=== PATIENT | female | born 1950 | race Hispanic/Latino ===

== ENCOUNTER → 2019-06-26 | Outpatient (CLI) | payer OTHER, MEDICARE ==
[~2019-06-26] VITALS: Ht 157.5 cm; Wt 114.8 kg
[~2019-06-26] MED LIST: REGADENOSON 0.4 MG/5 ML PF SYG IVP SCH
== END | disposition home or self-care (01) ==
LOC: SHCH 08:32
PROVIDERS: ATTEND Internal Medicine Cardiovascular Disease
DX: R06.02 Shortness of breath (principal)
CPT/HCPCS: 78452; 93017; 96374; A9500 ×2; J2785

== ENCOUNTER → 2021-02-11 | Outpatient (CLI) | payer OTHER, MEDICARE ==
[~2021-02-11] MED LIST changes: +ALBUTEROL SULFATE 0.083% 2.5 MG/3 ML INH IH ONE; -REGADENOSON 0.4 MG/5 ML PF SYG IVP SCH
== END | disposition home or self-care (01) ==
LOC: RESP 12:41
PROVIDERS: ATTEND Internal Medicine Cardiovascular Disease
DX: R06.02 Shortness of breath (principal); R91.8 Other nonspecific abnormal finding of lung field; Z78.9 Other specified health status
CPT/HCPCS: 71250; 94060; 94727; 94729

== ENCOUNTER → 2022-11-02 | Outpatient (CLI) | payer OTHER, MEDICARE | END | disposition home or self-care (01) | LOC: SHCH 09:04 | PROVIDERS: ATTEND Internal Medicine Cardiovascular Disease | DX: I87.2 Venous insufficiency (chronic) (peripheral) (principal) | CPT/HCPCS: 93970 ==

== ENCOUNTER → 2022-12-06 | Outpatient (CLI) | payer OTHER, MEDICARE | END | disposition home or self-care (01) | LOC: SHCH 15:04 | PROVIDERS: ATTEND Internal Medicine Cardiovascular Disease | DX: I87.2 Venous insufficiency (chronic) (peripheral) (principal); Z98.890 Other specified postprocedural states | CPT/HCPCS: 93971 ==

== ENCOUNTER → 2022-12-20 | Outpatient (CLI) | payer OTHER, MEDICARE | END | disposition home or self-care (01) | LOC: SHCH 10:08 | PROVIDERS: ATTEND Internal Medicine Cardiovascular Disease | DX: I87.2 Venous insufficiency (chronic) (peripheral) (principal); I82.811 Embolism and thrombosis of superficial veins of right lower extremity; Z98.890 Other specified postprocedural states | CPT/HCPCS: 93971 ==

== ENCOUNTER → 2023-02-18 | Outpatient (CLI) | payer OTHER, MEDICARE ==
[2023-02-18 15:28] LABS: BASOPHILS % (AUTO) 0.6 % (0.0-5.0); EOSINOPHILS % (AUTO) 2.5 % (0.0-8.0); HEMATOCRIT 41.4 % (36-48); LYMPHOCYTES % (AUTO) 33.3 % (21.0-51.0); MEAN CORPUSCULAR HEMOGLOBIN 26.9 pg (27.0-33.0); MEAN CORPUSCULAR HGB CONC 31.4 g/dL (32.0-36.0); MEAN CORPUSCULAR VOLUME 85.7 fL (79-99); MONOCYTES % (AUTO) 7.8 % (3.0-13.0); NEUTROPHILS % (AUTO) 55.5 % (40.0-77.0); PLATELET COUNT (AUTO) 249 K/uL (130-400); RED BLOOD CELL COUNT(AUTO) 4.83 MIL/uL (4.00-5.50); RED CELL DISTRIBUTION WIDTH 13.5 % (11.0-15.5); WHITE BLOOD COUNT (AUTO) 8.9 K/uL (4.8-10.8)
[2023-02-18 15:46] LABS: CREATININE 0.8 mg/dL (0.5-1.5); POTASSIUM 3.7 mmol/L (3.5-5.1)
[2023-02-18 16:06] LABS: INR 0.98 (0.85-1.15); PROTHROMBIN TIME 10.7 SEC (9.6-11.6)
[2023-02-18 16:07] LABS: PARTIAL THROMBOPLASTIN TIME 27.3 SEC (26.3-35.5)
== END | disposition home or self-care (01) ==
LOC: LAB 13:20
PROVIDERS: ATTEND Internal Medicine Cardiovascular Disease
DX: I87.1 Compression of vein (principal); I87.2 Venous insufficiency (chronic) (peripheral); M79.605 Pain in left leg; M25.572 Pain in left ankle and joints of left foot; M79.89 Other specified soft tissue disorders; I10 Essential (primary) hypertension; E03.9 Hypothyroidism, unspecified; E11.59 Type 2 diabetes mellitus with other circulatory complications; Z68.42 Body mass index [BMI] 45.0-49.9, adult; Z79.84 Long term (current) use of oral hypoglycemic drugs; Z79.899 Other long term (current) drug therapy
CPT/HCPCS: 36415; 80048; 85025; 85610; 85730

== ENCOUNTER → 2024-01-10 | Outpatient (CLI) | payer OTHER, MEDICARE ==
[2024-01-10 16:18] LABS: BASOPHILS # (AUTO) 0.03 K/uL (0.00-0.20); BASOPHILS % (AUTO) 0.4 % (0.0-5.0); EOSINOPHILS # (AUTO) 0.33 K/uL (0.00-0.70); HEMATOCRIT 37.9 % (36-48); IMMATURE GRANULOCYTE ABSOLUTE 0.03 K/uL (0-1); LYMPHOCYTES # (AUTO) 3.1 K/uL (1.0-4.8); LYMPHOCYTES % (AUTO) 37.8 % (21.0-51.0); MEAN CORPUSCULAR HEMOGLOBIN 26.9 pg (27.0-33.0); MEAN CORPUSCULAR HGB CONC 31.1 g/dL (32.0-36.0); MEAN CORPUSCULAR VOLUME 86.3 fL (79-99); MONOCYTES # (AUTO) 0.7 K/uL (0.1-1.0); MONOCYTES % (AUTO) 8.1 % (3.0-13.0); NEUTROPHILS # (AUTO) 4.1 K/uL (1.8-7.7); NEUTROPHILS % (AUTO) 49.3 % (40.0-77.0); PLATELET COUNT (AUTO) 225 K/uL (130-400); RED BLOOD CELL COUNT(AUTO) 4.39 MIL/uL (4.00-5.50); RED CELL DISTRIBUTION WIDTH 14.2 % (11.0-15.5); WHITE BLOOD COUNT (AUTO) 8.3 K/uL (4.8-10.8)
[2024-01-10 16:45] LABS: % IRON SATURATION 12.5 % (22-44)
== END | disposition home or self-care (01) ==
LOC: LAB 15:43
PROVIDERS: ATTEND Internal Medicine Cardiovascular Disease
DX: K92.2 Gastrointestinal hemorrhage, unspecified (principal)
CPT/HCPCS: 36415; 82728; 83540; 83550; 85025

== ENCOUNTER → 2024-11-13 | Outpatient (CLI) | payer OTHER, MEDICARE ==
[~2024-11-13] MED LIST changes: -ALBUTEROL SULFATE 0.083% 2.5 MG/3 ML INH IH ONE; +AMLO-257 PO; +ASPI-1443 PO; +BIMA12.5OS OP; +CHOL500045 PO; +CYAN100099 PO; +GABA300C PO; +HYDR12.54 PO; +INSU100I35 SQ; +LEVO50TA11 PO; +LINE600T11 PO; +METF-444 PO; +METO-391 PO; +POTA-183 PO; +PRED10TA3 PO; +SIMV-43 PO; +TELM80TA10 PO
--- NOTE | 2024-11-16 08:14 | HMCSR ---
APPROVED REPORT Bilateral Lower Extremity Venous Study for DVT., Venous Competence. Indications i87.2 Vein Imaging CFV (R): Normal flow, augmentation and compression. No evidence of DVT. 6.9mm 311ms of reflux. SFJ (R): Normal flow, augmentation and compression. No evidence of DVT. FEM (R): Normal flow, augmentation and compression. No evidence of DVT. POP (R): Normal flow, augmentation and compression. No evidence of DVT. DFV (R): Normal flow, augmentation and compression. No evidence of DVT. PTV (R): Normal flow, augmentation and compression. No evidence of DVT. Peroneals (R): Normal flow, augmentation and compression. No evidence of DVT. CFV (L): Normal flow, augmentation and compression. No evidence of DVT. 9.8mm 1517ms of reflux. SFJ (L): Normal flow, augmentation and compression. No evidence of DVT. FEM (L): Normal flow, augmentation and compression. No evidence of DVT. POP (L): Normal flow, augmentation and compression. No evidence of DVT. DFV (L): Normal flow, augmentation and compression. No evidence of DVT. PTV (L): Normal flow, augmentation and compression. No evidence of DVT. Peroneals (L): Normal flow, augmentation and compression. No evidence of DVT. Technologist Impression Deep Veins of bilateral lower extremities appear patent and compressible without thrombus. 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
--- NOTE | 2024-11-16 08:15 | HMCSR ---
APPROVED REPORT Laterality: Bilateral Indications i87.2 VELOCITY AND DOPPLER WAVEFORM ANALYSIS MEDICAL ADMINISTRATOR (R) 142.2cm/sec, Triphasic, MEDICAL ADMINISTRATOR (L) 184.3cm/sec, Triphasic, Prof Fem Art. (R) 75.0cm/sec, Biphasic, Prof Fem Art. (L) 75.0cm/sec, Biphasic, Fem Art Prox. (R) 160.6cm/sec, Triphasic, Fem Art Prox. (L) 171.3cm/sec, Triphasic, Fem Art Mid. (R) 125.0cm/sec, Triphasic, Fem Art Mid. (L) 176.2cm/sec, Triphasic, Fem Art Dist (R) 115.8cm/sec, Triphasic, Fem Art Dist. (L) 150.1cm/sec, Triphasic, Pop Art(AK) (R) 98.4cm/sec, Biphasic, Pop Art (AK) (L) 113.5cm/sec, Biphasic, Pop Art (Fossa)(R) 108.0cm/sec, Biphasic, Pop Art (Fossa) (L) 112.0cm/sec, Biphasic, Pop Art(BK) (R) 127.3cm/sec, Biphasic, Pop Art (BK) (L) 116.9cm/sec, Biphasic, TOOL SETTER APPRENTICE Prox. (R) 174.6cm/sec, Monophasic, TOOL SETTER APPRENTICE Prox. (L) 164.3cm/sec, Monophasic, TOOL SETTER APPRENTICE Mid. (R) 117.0cm/sec, Monophasic, TOOL SETTER APPRENTICE Mid. (L) 147.0cm/sec, Monophasic, TOOL SETTER APPRENTICE Dist. (R) 129.7cm/sec, Monophasic, TOOL SETTER APPRENTICE Dist. (L) 145.4cm/sec, Monophasic, Per Art Prox. (R) cm/sec, Not visualizedPer Art Prox. (L) cm/sec, Not visualized Per Art Mid. (R) cm/sec, Not visualizedPer Art Mid. (L) cm/sec, Not visualized Per Art Dist. (R) cm/sec, Not visualizedPer Art Dist. (L) cm/sec, Not visualized TERRELL Prox. (R) 99.5cm/sec, Monophasic, TERRELL Prox. (L) 84.2cm/sec, Monophasic, TERRELL Mid. (R) 96.0cm/sec, Monophasic TERRELL Mid. (L) 96.6cm/sec, Monophasic, TERRELL Dist. (R) 156.6cm/sec, Monophasic, TERRELL Dist. (L) 114.6cm/sec, Monophasic, Technologist Impression Infra popliteal disease seen Bilatareral Peroneal arteries not seen. Conclusion Monophasic waveforms noted in bilateral infrapopliteal vessels with possible occlusion of bilateral p eroneal arteries Critical infrapopliteal peripheral arterial disease Clinical correlation recommended Conclusion Monophasic waveforms noted in bilateral infrapopliteal vessels with possible occlusion of bilateral p eroneal arteries Critical infrapopliteal peripheral arterial disease Clinical correlation recommended
== END | disposition home or self-care (01) ==
LOC: SHCH 08:59
PROVIDERS: ATTEND Internal Medicine Cardiovascular Disease
DX: I87.2 Venous insufficiency (chronic) (peripheral) (principal); I80.203 Phlebitis and thrombophlebitis of unspecified deep vessels of lower extremities, bilateral; I87.1 Compression of vein
CPT/HCPCS: 93925; 93970

== ENCOUNTER → 2024-11-15 | Outpatient (CLI) | payer OTHER, MEDICARE ==
[2024-11-15 16:14] LABS: BASOPHILS # (AUTO) 0.04 K/uL (0.00-0.20); BASOPHILS % (AUTO) 0.5 % (0.0-5.0); EOSINOPHILS # (AUTO) 0.42 K/uL (0.00-0.70); EOSINOPHILS % (AUTO) 5.3 % (0.0-8.0); HEMATOCRIT 38.4 % (36-48); IMMATURE GRANULOCYTE ABSOLUTE 0.01 K/uL (0-1); LYMPHOCYTES # (AUTO) 2.8 K/uL (1.0-4.8); LYMPHOCYTES % (AUTO) 35.8 % (21.0-51.0); MEAN CORPUSCULAR HEMOGLOBIN 27.1 pg (27.0-33.0); MEAN CORPUSCULAR HGB CONC 30.2 g/dL (32.0-36.0); MEAN CORPUSCULAR VOLUME 89.7 fL (79-99); MONOCYTES # (AUTO) 0.7 K/uL (0.1-1.0); MONOCYTES % (AUTO) 8.5 % (3.0-13.0); NEUTROPHILS # (AUTO) 3.9 K/uL (1.8-7.7); NEUTROPHILS % (AUTO) 49.8 % (40.0-77.0); PLATELET COUNT (AUTO) 251 K/uL (130-400); RED BLOOD CELL COUNT(AUTO) 4.28 MIL/uL (4.00-5.50); RED CELL DISTRIBUTION WIDTH 14.4 % (11.0-15.5); WHITE BLOOD COUNT (AUTO) 7.9 K/uL (4.8-10.8)
[2024-11-15 16:27] LABS: INR <= 0.93 (0.85-1.15); PROTHROMBIN TIME 10.4 SEC (9.6-11.6)
[2024-11-15 16:28] LABS: PARTIAL THROMBOPLASTIN TIME 25.8 SEC (26.3-35.5); POTASSIUM 4.1 mmol/L (3.5-5.1)
== END | disposition home or self-care (01) ==
LOC: LAB 12:51
PROVIDERS: ATTEND Internal Medicine Cardiovascular Disease
DX: Z01.812 Encounter for preprocedural laboratory examination (principal); I87.1 Compression of vein; I87.2 Venous insufficiency (chronic) (peripheral); I10 Essential (primary) hypertension; G47.30 Sleep apnea, unspecified; E03.9 Hypothyroidism, unspecified; E11.59 Type 2 diabetes mellitus with other circulatory complications; Z68.42 Body mass index [BMI] 45.0-49.9, adult; Z79.899 Other long term (current) drug therapy; R60.9 Edema, unspecified; R07.89 Other chest pain
CPT/HCPCS: 36415; 80048; 85025; 85610; 85730

== ENCOUNTER → 2024-12-24 | Outpatient (CLI) | payer OTHER, MEDICARE ==
[2024-12-24 17:04] LABS: CREATININE 0.9 mg/dL (0.5-1.0); POTASSIUM 4.5 mmol/L (3.5-5.1)
== END | disposition home or self-care (01) ==
LOC: LAB 11:28
PROVIDERS: ATTEND Internal Medicine Cardiovascular Disease
DX: I10 Essential (primary) hypertension (principal)
CPT/HCPCS: 36415; 80048

== ENCOUNTER → 2025-04-16 | Outpatient (CLI) | payer OTHER, MEDICARE ==
[~2025-04-16] MED LIST changes: +CYAN-37 PO; -CYAN100099 PO
--- NOTE | 2025-04-17 02:46 | HMCIMG ---
EXAM: CR Cervical spine, 3 views. CLINICAL HISTORY: Radiculopathy in the cervical region. COMPARISON: None provided. FINDINGS: Reversal of the cervical lordosis reflects paraspinal muscle spasm. Grade 1 degenerative anterior listhesis of C3 on C4. Mild spondylosis. The intervertebral disc spaces are maintained. Normal vertebral body heights. No acute fracture. The prevertebral soft tissues are within normal limits. The included lungs are clear. IMPRESSION: No acute bony abnormality is evident. Reversal of the cervical lordosis reflects paraspinal muscle spasm. Grade 1 degenerative anterior listhesis of C3 on C4. Mild spondylosis. /[place]
--- NOTE | 2025-04-17 02:56 | HMCIMG ---
EXAM: CR Lumbar Spine, 3 views. CLINICAL HISTORY: Other specified spondylopathy's. COMPARISON: Radiograph of the lumbar spine dated 09/17/2014. FINDINGS: Mild levoscoliosis of the lumbar spine. Grade 1 degenerative anterolisthesis of L3 on L4 and L4 on L5. Mild osteopenia. Moderate spondylosis and degenerative disc space narrowing at multiple levels, most pronounced at L4-L5. Normal vertebral body heights. No acute fracture. Stent grafts overlie the bilateral iliac vessels. IMPRESSION: Mild levoscoliosis of the lumbar spine. Grade 1 degenerative anterolisthesis of L3 on L4 and L4 on L5. Mild osteopenia. Moderate spondylosis and degenerative disc space narrowing at multiple levels, most pronounced at L4-L5. Overall, there is interval worsening compared to the previous radiograph dated 09/17/2014. /[place]
== END | disposition home or self-care (01) ==
LOC: RAH 12:13
PROVIDERS: ATTEND Internal Medicine
DX: M47.22 Other spondylosis with radiculopathy, cervical region (principal); M47.26 Other spondylosis with radiculopathy, lumbar region; M48.8X6 Other specified spondylopathies, lumbar region; M41.86 Other forms of scoliosis, lumbar region; M85.88 Other specified disorders of bone density and structure, other site; M48.061 Spinal stenosis, lumbar region without neurogenic claudication; M43.19 Spondylolisthesis, multiple sites in spine; M62.838 Other muscle spasm
CPT/HCPCS: 72040; 72100